=== PATIENT | male | born 1965 | race Caucasian/White ===

== ENCOUNTER 2016-09-30 20:32 | Emergency (ER) | payer SELFPAY ==
[~2016-09-30] VITALS: Ht 185.4 cm; Wt 81.8 kg
[~2016-09-30 20:32] MED LIST: AMOXICILLIN 50500 MG PO; CEPHALEXIN500 M1 PO; CLINDAMYCIN150 MG PO; LORTAB 5/500 501 TAB PO; NAPROSYN500 MG PO; NKDA; NO HOME MEDICATIONS; NORCO 325 MG-51 TAB PO; NORVASC 5MG5 MG/TAB PO; PEN-VEE K500 MG PO; PERCOCET 325 MG1 TA2 PO
[2016-09-30 20:49] VITALS: TEMP 98.1
[2016-09-30] MEDS ORDERED: BLOOD PRESSURE MED PO (20:52)
[2016-09-30] MEDS ORDERED: PREDNISONE20 MG PO (22:15)
[2016-09-30] MEDS ORDERED: ZITHROMAX 250M250 MG PO (22:15)
[2016-09-30 22:30] VITALS: BP 137/72; PULSE 64
== END 2016-09-30 22:30 | disposition home or self-care (01) ==
LOC: COL.ER 20:32
DX: J20.9 Acute bronchitis, unspecified (principal); F17.210 Nicotine dependence, cigarettes, uncomplicated
CPT/HCPCS: J7512